=== PATIENT | male | born 1980 | race Caucasian/White ===

== ENCOUNTER 2020-12-30 14:16 | Emergency (ER) | payer BC ==
[2020-12-30] MEDS ORDERED: Diphtheria,Pertussis(Acell),Tetanus Vaccine 0.5 ML Syringe IM ONE (14:35)
[2020-12-30] MEDS ORDERED: Lidocaine 1% with EPINEPHrine 1:100,000 50 ML MDV INFILT STA (14:35)
[2020-12-30] MEDS ORDERED: Bacitracin Oint 1 GM U/D Packet TOP ONE (14:36)
[2020-12-30] MEDS ORDERED: Acetaminophen/HYDROcodone 325-5 MG Tab PO ONE (14:41)
--- NOTE | 2020-12-30 14:42 | EDM.PDOC ---
ED HPI GENERAL MEDICAL PROBLEM - General Chief Complaint: Laceration Stated Complaint: CHAINSAW KNICKED R LEG Time Seen by Provider: 12/30/20 14:40 Source of Information: Reports: Patient, RN Notes Reviewed History Limitations: Reports: No Limitations - History of Present Illness INITIAL COMMENTS - FREE TEXT/NARRATIVE: Willie presents today with complaints of injury to right lower leg from a chain saw one hour [employer]. He report he was trying to cut down a tree when the tree started to fall and the saw was kicked back striking his lower leg. He denies any other injury, fever, chills, nausea, vomiting or other concerns. Tetanus last 2011 COVID vaccination series completed He works as a general farm hand Right Leg Pain Score (Numeric/FACES): 4 - Related Data Allergies Allergy/AdvReac Type Severity Reaction Status Date / Time erythromycin base AdvReac Stomach Verified 12/30/20 14:36 Upset Home Meds: Home Meds Sertraline [Zoloft] 50 mg PO DAILY 12/30/20 [History] Past Medical History Musculoskeletal History: Reports: Fracture Psychiatric History: Reports: Depression - Past Surgical History Musculoskeletal Surgical History: Reports: Other (See Below) Other Musculoskeletal Surgeries/Procedures:: ankle fx repair Social & Family History - Tobacco Use Tobacco Use Status *Q: Current Status Unknown - Caffeine Use Caffeine Use: Reports: Coffee - Alcohol Use Days Per Week of Alcohol Use: 7 Number of Drinks Per Day: 2 Total Drinks Per Week: 14 - Recreational Drug Use Recreational Drug Use: Yes Recreational Drug Type: Reports: Marijuana/Hashish Recreational Drug Use Frequency: Socially ED ROS GENERAL - Review of Systems Review Of Systems: See Below Constitutional: Reports: No Symptoms HEENT: Reports: No Symptoms Respiratory: Reports: No Symptoms Cardiovascular: Reports: No Symptoms Endocrine: Reports: No Symptoms GI/Abdominal: Reports: No Symptoms : Reports: No Symptoms Musculoskeletal: Reports: Other (pain to laceration of RLE from chainsaw) Skin: Reports: Wound (laceration to RLE, bleeding controlled) Neurological: Reports: No Symptoms Psychiatric: Reports: No Symptoms Hematologic/Lymphatic: Reports: No Symptoms Immunologic: Reports: No Symptoms ED EXAM, SKIN/RASH Exam: See Below Exam Limited By: No Limitations General Appearance: Alert, WD/WN, No Apparent Distress Head: Atraumatic, Normocephalic Respiratory/Chest: No Respiratory Distress, Lungs Clear, Normal Breath Sounds, No Accessory Muscle Use, Chest Non-Tender. No: Crackles, Rales, Rhonchi, Wheezing Cardiovascular: Normal Peripheral Pulses, Regular Rate, Rhythm, No Edema, No Gallop, No Murmur, No Rub Peripheral Pulses: 4+: Dorsalis Pedis (L), Dorsalis Pedis (R) Back Exam: Normal Inspection, Full Range of Motion. No: CVA Tenderness (R), CVA Tenderness (L) Extremities: Normal Range of Motion, No Pedal Edema, Normal Capillary Refill, Other (laceration with bone fragments RLE ) Neurological: Alert, Oriented, CN II-XII Intact, Normal Cognition, Normal Gait, Normal Reflexes, No Motor/Sensory Deficits Psychiatric: Normal Affect, Normal Mood Skin: Warm, Dry, Normal Color, No Rash, Wound/Incision (RLE linear laceration, fascia and partially to muscle. ROM intact. Several bone fragments visible. Bleeding controlled. ) Location, Skin: Lower Extremity, Right Characteristics: Linear Associated features: Tenderness Lymphatic: No Adenopathy ED SKIN PROCEDURES - Laceration/Wound Repair Right Anterior Distal Leg Appearance: Subcutaneous, Muscle, Linear, Mildly Contaminated Distal NVT: Neuro & Vascular Intact, No Tendon Injury Anesthetic Type: Local Local Anesthesia - Lidocaine (Xylocaine): 1% with EPI Local Anesthetic Volume: Other (10ml) Skin Prep: Chlorhexidine (Hibiciens), Isopropyl Alcohol (Alcohol) Saline Irrigation (cc's): 3,000 (2 liters saline then 1liter with 1 bottle betadine used per direction Rena bucio. ) Exploration/Debridement/Repair: Wound Explored, In a Bloodless Field, Moderate Debridement (two 0.3cm bone fragments removed, with several small bone fragments and clothing shreds removed. ), Foreign Material Removed, Wound Margins Revised Closed with: Sutures Lac/Wound length In cm: 7 Suture Size: 3-0 # of Sutures: 2 (One inturrupted and one running suture to wound to close skin. ) Suture Type: Nylon Drain Placement: No Sterile Dressing Applied: Provider Tetanus Status Addressed: Other (updated) Complications: No Progress/Comments: Patient tolerated well, ROM intact prior to and post laceration repair. Education on signs of infection, decreased activity, elevation provided to patient. He verbalized understanding. Course - Vital Signs Last Recorded V/S: Last Vital Signs Temp 36.8 C 12/30/20 14:30 Pulse 65 12/30/20 14:30 Resp 18 12/30/20 14:30 BP 142/89 H 12/30/20 14:30 Pulse Ox 98 12/30/20 14:30 - Orders/Labs/Meds Orders: Active Orders 24 hr Category Date Time Status Tibia Fibula Rt [CR] Stat Exams 12/30/20 14:35 Taken Meds: Medications Discontinued Medications Generic Name Dose Route Start Last Admin Trade Name Umberto PRN Reason Stop Dose Admin Hydrocodone Bitart/Acetaminophen 1 tab 12/30/20 14:41 12/30/20 14:56 Acetaminophen/Hydrocodone 325-5 Mg Tab PO 12/30/20 14:42 1 tab ONETIME ONE Administration Bacitracin 1 dose 12/30/20 14:36 12/30/20 14:56 Bacitracin Oint 1 Gm U/D Packet TOP 12/30/20 14:37 1 dose ONETIME ONE Administration Diphtheria/Tetanus/Acell Pertussis 0.5 ml 12/30/20 14:35 12/30/20 14:56 Diphtheria,Pertussis(Acell),Tetanus Vaccine 0.5 Ml Syringe IM 12/30/20 14:36 0.5 ml .ONCE ONE Administration Ampicillin Sodium/Sulbactam 100 mls @ 200 mls/hr 12/30/20 15:35 12/30/20 15:55 Sodium 3 gm/ Sodium Chloride IV 12/30/20 16:04 200 mls/hr ONETIME ONE Administration Lidocaine/Epinephrine 10 ml 12/30/20 14:35 12/30/20 14:56 Lidocaine 1% With Epinephrine 1:100,000 50 Ml Mdv INFILT 12/30/20 14:36 10 ml NOW STA Administration - Radiology Interpretation Free Text/Narrative:: X-ray wet read, reviewed by myself and Dr. White. Open fracture right tibia without complete fracture. Rena SCHWAB [facility] video presentation operator contacted. - Re-Assessments/Exams Free Text/Narrative Re-Assessment/Exam: 12/30/20 15:20 Rena SCHWAB ORTHO notified [facility] to review x-rays. Wound irrigated with 2000ml sterile saline, local anesthetic to wound. Noted tibia without complete fracture with bone fragments, fascia disrupted, partial muscle injury with ROM intact. 12/30/20 15:33 Rena SCHWAB telephoned back. Advised to irrigate wound well with saline and Betadine. Close skin and have patient follow up with ortho provider on Friday for evaluation and possible intervention. Advised to provide IV antibiotics with Augmentin and gram negative coverage. Case reviewed with Dr. White and patient, they are in agreement with plan. Patient will be provided Augmentin and cephalexin for 14 days with IV Unasyn while in emergency room. Wound irrigated with additional sterile normal saline 1000l with one small bottle Betadine. Patient tolerated well. Departure - Departure Time of Disposition: 16:21 Disposition: Home, Self-Care 01 Condition: Good Clinical Impression: Open fracture of tibia, Laceration - Discharge Information *PRESCRIPTION DRUG MONITORING PROGRAM REVIEWED*: No *COPY OF PRESCRIPTION DRUG MONITORING REPORT IN PATIENT SANTI: No Instructions: Tibial Fracture, Adult, [id number], Laceration Care, Adult, [id number] Referrals: PCP,None [Primary Care Provider] - Forms: ED Department Discharge Additional Instructions: You have been evaluated and treated for an open fracture with laceration to the right tibia. Your fracture did not go all the way through the bone, however there was a large piece removed by the chain saw. Your fascia and mart of the muscle to the lower leg was also lacerated by the chain saw. You have full range of motion. You were given Unasyn 3gram IV. Prescriptions for augmentin 875mg one pill by mouth every twelve hours for 14 days for infection prevention. And Cephalexin 1000mg (two pills) by mouth every 12 hours for infection prevention for 14 days. Keep the wound clean and dry. Keep the current dressing on for the next 24 to 36 hours. You may then shower, dry and apply bacitracin to the wound, dress wound and keep dry. Make sure to follow up with orthopedic provider of choice on Friday for re-check of the wound. They may do an x-ray, may want to remove sutures and/or provide care as best they see fit. If any signs of infection develop, redness, warmth, red streak up leg, fever, chills then you must report to the emergency room nearest too you for evaluation. You are at significant risk for infection of the bone. Follow up with ortho on Friday, primary as needed and emergency room as needed. Sepsis Event Note (ED) - Evaluation Sepsis Screening Result: No Definite Risk - Focused Exam Vital Signs: Vital Signs Temp Pulse Resp BP Pulse Ox 12/30/20 14:30 36.8 C 65 18 142/89 H 98 - My Orders Last 24 Hours: My Active Orders 12/30/20 14:35 Tibia Fibula Rt [CR] Stat - Assessment/Plan Last 24 Hours: My Active Orders 12/30/20 14:35 Tibia Fibula Rt [CR] Stat Assessment:: Open fracture of tibia, Laceration Irrigation to wound bed and removal of visible bone fragments per direction of Rena SCHWAB orthopedics. Skin sutured closed. Patient tolerated well. CMS intact. Plan: Patient evaluated and treated for an open fracture with laceration to the right tibia. Fracture did not go all the way through the bone, however there was a large piece removed by the chain saw. Fascia and mart of the muscle to the lower leg was also lacerated by the chain saw. Full range of motion to RLE. He was given Unasyn 3gram IV. Prescriptions for augmentin 875mg one pill by mouth every twelve hours for 14 days for infection prevention. And Cephalexin 1000mg (two pills) by mouth every 12 hours for infection prevention for 14 days. Keep the wound clean and dry. Keep the current dressing on for the next 24 to 36 hours. He may then shower, dry and apply bacitracin to the wound, dress wound and keep dry. Make sure to follow up with orthopedic provider of choice on Friday for re-check of the wound. They may do an x-ray, may want to remove sutures and/or provide care as best they see fit. If any signs of infection develop, redness, warmth, red streak up leg, fever, chills he must report to the emergency room nearest to him for evaluation. He is at significant risk for infection of the bone. Follow up with ortho on Friday, primary as needed and emergency room as needed.
[2020-12-30] MEDS ORDERED: Ampicillin/Sulbactam Na 3 GM in Sodium Chloride 0.9% 100 ML IV ONE (15:35)
--- NOTE | 2021-01-01 10:16 | CR ---
Tibia Fibula Rt CLINICAL HISTORY: Chain saw accident FINDINGS: There is a soft tissue defect in the anterior midshin. There is a cortical defect underlying. There small bone fragments in the soft tissue. Impression: Laceration with underlying anterior tibial cortical fracture
== END 2020-12-30 16:50 | disposition home or self-care (01) ==
LOC: JP.ED 14:16
DX: S82.201B Unspecified fracture of shaft of right tibia, initial encounter for open fracture type I or II (principal); Z88.1 Allergy status to other antibiotic agents; Z23 Encounter for immunization; W29.3XXA Contact with powered garden and outdoor hand tools and machinery, initial encounter
CPT/HCPCS: 12002; 73590; 90471; 90715; 96365; 99283; A9270; J0295